=== PATIENT | male | born 1955 | race American Indian/Alaskan Native ===

== ENCOUNTER 2017-04-18 12:43 | Observation (INO) | payer OTHER ==
[2017-04-18 13:33] VITALS: BMI 35.5
--- NOTE | 2017-04-18 14:04 | ED PDOC ---
Arrival/HPI - General Chief Complaint: Weakness/Neurological Deficit Time Seen by Provider: 04/18/17 13:18 Historian: Patient - History of Present Illness Narrative History of Present Illness (Text): 04/18/17 13:51 A 61 year old male, whose past medical history includes diabetes and hypertension, presents to the emergency department complaining of chest pain and generalized weakness. Patient reports last night he developed a left sided chest pain that lasted for a few minutes. He described the pain has a non radiating pressure. Patient notes that generalized weakness developed around the same time and lasted for hours into late this morning. Currently he states he has a mild non productive cough that began two weeks ago but he denies any fever, chills, chest pain, shortness of breath, headache, weakness, or any other complaints at this time. Time/Duration: Other Symptom Onset: Sudden Symptom Course: Resolved Quality: Other Activities at Onset: Rest Context: Home Past Medical History - Provider Review Nursing Documentation Reviewed: Yes - Cardiac Hx Hypertension: Yes - Pulmonary Hx Respiratory Disorders: No - Neurological Hx Neurological Disorder: No - HEENT Hx HEENT Disorder: No - Renal Hx Renal Disorder: No - Endocrine/Metabolic Hx Diabetes Mellitus Type 2: Yes - Hematological/Oncological Hx Blood Disorders: No - Integumentary Hx Dermatological Disorder: No - Musculoskeletal/Rheumatological Hx Musculoskeletal Disorders: No - Gastrointestinal Hx Gastrointestinal Disorders: No - Genitourinary/Gynecological Hx Genitourinary Disorders: No - Psychiatric Hx Psychophysiologic Disorder: No Hx Substance Use: No - Anesthesia Hx Anesthesia Reactions: No Family/Social History - Physician Review Nursing Documentation Reviewed: Yes Family/Social History: Unknown Family HX Smoking Status: Never Smoked Hx Alcohol Use: Yes Frequency of alcohol use: Socially Hx Substance Use: No Allergies/Home Meds Allergies/Adverse Reactions: Allergies No Known Allergies Allergy (Verified 04/18/17 13:38) Review of Systems - Physician Review All systems were reviewed & negative as marked: Yes - Review of Systems Constitutional: absent: Fevers Respiratory: Cough. absent: Sputum Cardiovascular: absent: Chest Pain Gastrointestinal: absent: Abdominal Pain, Hematochezia Genitourinary Male: absent: Hematuria Musculoskeletal: absent: Back Pain, Neck Pain Skin: absent: Rash Neurological: Normal. absent: Headache, Dizziness Physical Exam Vital Signs Reviewed: Yes Vital Signs Temp Pulse Resp BP Pulse Ox 04/18/17 14:13 68 18 148/79 100 04/18/17 12:50 98.1 F 72 16 153/84 H 100 Temperature: Afebrile Blood Pressure: Hypertensive Pulse: Regular Respiratory Rate: Normal Appearance: Positive for: Well-Appearing, Non-Toxic, Comfortable Pain Distress: None Mental Status: Positive for: Alert and Oriented X 3 - Systems Exam Head: Present: Atraumatic, Normocephalic Pupils: Present: PERRL Conjunctiva: Present: Normal Mouth: Present: Moist Mucous Membranes Pharnyx: Present: Normal. No: ERYTHEMA, EXUDATE Neck: Present: Normal Range of Motion Respiratory/Chest: Present: Clear to Auscultation, Good Air Exchange. No: Respiratory Distress, Accessory Muscle Use Cardiovascular: Present: Regular Rate and Rhythm, Normal S1, S2. No: Murmurs Abdomen: Present: Normal Bowel Sounds. No: Tenderness, Distention, Peritoneal Signs Back: Present: Normal Inspection Upper Extremity: Present: Normal Inspection. No: Cyanosis, Edema Lower Extremity: Present: Normal Inspection. No: Edema Neurological: Present: GCS=15, CN II-XII Intact, Speech Normal Skin: Present: Warm, Dry, Normal Color. No: Rashes Psychiatric: Present: Alert, Oriented x 3, Normal Insight, Normal Concentration Medical Decision Making ED Course and Treatment: 04/18/17 13:51 Impression: A 61 year old male with chest pain and generalized weakness. Differential Diagnosis include but are not limited to: ACS vs bronchitis vs muscular vs GERD Plan: -- EKG -- Chest X-ray -- Labs -- Urinalysis -- Reassess and disposition Progress Notes: EKG: Ordered, reviewed, and independently interpreted the EKG. Rate : 69 BPM Rhythm : NSR Interpretation : first degree AV block, [place] of 226 but other intervals are normal , normal axis, no ST/ T changes. Comparison : No previous EKG for comparison. 04/18/17 15:21 Patient with noted history. EKG is unremarkable but patient with chest pain and generalized weakness with a history of Diabetes and Hypertension with no previous cardiac workup. Will need serial CE and placement on tele. Discussed with Dr. Leon, on-call physician, for observation on his service on tele. - Lab Interpretations Lab Results: 04/18/17 14:18 04/18/17 14:18 Lab Results 04/18/17 14:20: Urine Color Yellow, Urine Appearance Clear, Urine pH 6.0, Ur Specific Sherwood >= 1.030, Urine Protein Trace H, Urine Glucose (UA) Negative, Urine Ketones Negative, Urine Blood Trace-lysed H, Urine Nitrate Negative, Urine Bilirubin Negative, Urine Urobilinogen 0.2, Ur Leukocyte Esterase Negative , Urine RBC 5 - 10, Urine WBC 2 - 5, Ur Epithelial Cells 6 - 8 04/18/17 14:18: Sodium 138, Potassium 4.1, Chloride 106, Carbon Dioxide 22, Anion Gap 14, BUN 16, Creatinine 0.8, Est GFR ( Amer) > 60, Est GFR (Non- Af Amer) > 60, Random Glucose 189 H, Calcium 9.7, Magnesium 1.8, Total Bilirubin 0.8, AST 19, ALT 28, Alkaline Phosphatase 59, Lactate Dehydrogenase 335, Total Creatine Kinase 116, Troponin I < 0.01, NT-Pro-B Natriuret Pep 184, Total Protein 7.7, Albumin 4.2, Globulin 3.5, Albumin/Globulin Ratio 1.2 04/18/17 14:18: PT 10.6, INR 0.98, APTT 27.5 04/18/17 14:18: WBC 5.7, RBC 4.67, Hgb 13.6 L, Hct 40.1 L, MCV 85.9, MCH 29.1, MCHC 33.9, RDW 13.9, Plt Count 296, MPV 9.3, Gran % 62.6, Lymph % (Auto) 25.6, Dixie % (Auto) 8.1 H, Eos % (Auto) 3.5, Baso % (Auto) 0.2, Gran # 3.57, Lymph # 1.5, Dixie # 0.5, Eos # 0.2, Baso # 0.01 I have reviewed the lab results: Yes - RAD Interpretation Radiology Orders: 04/18/17 13:55 CHEST PORTABLE [RAD] Stat - Medication Orders Current Medication Orders: Discontinued Medications Aspirin (Aspirin Chewable) 324 mg PO STAT STA Stop: 04/18/17 13:56 Last Admin: 04/18/17 14:01 Dose: 324 mg Aspirin (Aspirin) Confirm Administered Dose 325 mg .ROUTE .STK-MED ONE Stop: 04/18/17 14:01 Metoprolol Tartrate (Lopressor) 25 mg PO STAT STA Stop: 04/18/17 15:15 - Scribe Statement The provider has reviewed the documentation as recorded by the Ronaibe Piter Renee Provider Trinidad Attestation: All medical record entries made by the Scribe were at my direction and personally dictated by me. I have reviewed the chart and agree that the record accurately reflects my personal performance of the history, physical exam, medical decision making, and the department course for this patient. I have also personally directed, reviewed, and agree with the discharge instructions and disposition. Disposition/Present on Arrival - Present on Arrival Any Indicators Present on Arrival: No History of DVT/PE: No History of Uncontrolled Diabetes: No Urinary Catheter: No History of Decub. Ulcer: No History Surgical Site Infection Following: None - Disposition Have Diagnosis and Disposition been Completed?: Yes Diagnosis: Chest pain Disposition: HOSPITALIZED Disposition Time: 15:10 Patient Plan: Observation, Telemetry Condition: FAIR Discharge Instructions (ExitCare): Chest Pain (ED)
[2017-04-18 14:19] LABS: ADD MANUAL DIFF? NO
[2017-04-18 14:21] LABS: BASO # 0.01 K/mm3 (0.0-2.0); BASO % 0.2 % (0.0-3.0); EOS # 0.2 (0.0-0.7); EOS % 3.5 % (1.5-5.0); GRAN # 3.57 (1.4-6.5); GRAN % 62.6 % (50.0-68.0); HEMATOCRIT 40.1 % (42.0-52.0); LYMPH # 1.5 (1.2-3.4); LYMPH % 25.6 % (22.0-35.0); MEAN CELL VOLUME 85.9 fL (80.0-105.0); MEAN CORPUSCULAR HEMOGLOBIN 29.1 pg (25.0-35.0); MEAN CORPUSCULAR HGB CONC 33.9 g/dl (31.0-37.0); MEAN PLATELET VOLUME 9.3 fl (7.0-11.0); MONO # 0.5 (0.1-0.6); MONO % 8.1 % (1.0-6.0); PLATELET COUNT 296 10^3/uL (120.0-450.0); RED CELL DISTRIBUTION WIDTH 13.9 % (11.5-14.5); WHITE BLOOD COUNT 5.7 10^3/ul (4.5-11.0)
[2017-04-18 14:29] LABS: URINE BILIRUBIN NEGATIVE (NEGATIVE); URINE BLOOD TRACE-LYSED (NEGATIVE); URINE GLUCOSE (UA) NEGATIVE (NEGATIVE); URINE KETONE NEGATIVE (NEGATIVE); URINE LEUKOCYTE ESTERASE NEGATIVE Leu/uL (NEGATIVE); URINE PROTEIN TRACE mg/dL (<30 mg/dL); URINE UROBILINOGEN 0.2 E.U./dL (<1 E.U./dL)
[2017-04-18 14:31] LABS: INR 0.98 (0.93-1.08); PARTIAL THROMBOPLASTIN TIME 27.5 Seconds (23.7-30.8)
[2017-04-18 14:33] LABS: ALB/GLOB RATIO 1.2 (1.1-1.8); ALKALINE PHOSPHATASE 59 U/L (38-133); ALT/SGPT 28 U/L (7-56); AST/SGOT 19 U/L (15-59); BILIRUBIN,TOTAL 0.8 mg/dL (0.2-1.3); BLOOD UREA NITROGEN 16 mg/dL (7-21); CALCIUM 9.7 mg/dL (8.4-10.5); CARBON DIOXIDE 22 mmol/L (21-33); CHLORIDE 106 mmol/L (98-107); GFR AFRICAN-AMERICAN > 60; GLUCOSE,RANDOM 189 mg/dL (70-110); MAGNESIUM 1.8 mg/dL (1.7-2.2); POTASSIUM 4.1 mmol/L (3.6-5.0); SODIUM 138 mmol/L (132-148); TOTAL PROTEIN 7.7 g/dL (5.8-8.3)
[2017-04-18 14:36] LABS: URINE APPEARANCE CLEAR (CLEAR); URINE COLOR YELLOW (YELLOW)
[2017-04-18 15:01] LABS: TROPONIN I < 0.01 ng/mL
--- NOTE | 2017-04-18 15:15 | RAD ---
HISTORY: chest pain COMPARISON: No prior. FINDINGS: LUNGS: No active pulmonary disease. PLEURA: No significant pleural effusion identified, no pneumothorax apparent. CARDIOVASCULAR: No radiographic findings to suggest acute or significant cardiovascular disease. OSSEOUS STRUCTURES: No significant abnormalities. VISUALIZED UPPER ABDOMEN: Normal. OTHER FINDINGS: None. IMPRESSION: No active disease. No preliminary interpretation rendered by the emergency department physician
[2017-04-18] MEDS ORDERED: Pneumococcal 23-Valent Vaccine IM ONE (21:58)
[2017-04-19 05:23] VITALS: O2SAT 97
[2017-04-19] MEDS: Insulin Reg-LOW-Coverage SC SCH ×2 (08:42→12:36)
--- NOTE | 2017-04-19 09:23 | HP ---
The patient is a 61-year-old male with history of hypertension, diabetes. Came into the hospital wit h left side chest pain. The patient has his , is in the hospital, critical care. He is very str essed. Yesterday, he felt the pain for a half hour, left side chest pain, did not radiate anything, felt weak. No dizziness, no nausea, no fever, no cough. PAST MEDICAL HISTORY: Diabetes, hypertension. ALLERGIES: None known. SOCIAL HISTORY: He never smoked. No drinking. Drinking socially only. FAMILY HISTORY: Noncontributory. REVIEW OF SYSTEMS: Negative all systems. PHYSICAL EXAMINATION: VITAL SIGNS: Temperature 98.3, heart rate 72, blood pressure 152/92, respirations 18, saturation 100 % on room air. HEAD AND NECK: Normal. No JVD, no thyromegaly. CHEST: Clear, good air entry. CARDIAC: First sound, second sound normal. ABDOMEN: Soft, nontender. EXTREMITIES: No edema. NEUROLOGIC: Normal. LABORATORY STUDIES: Shows white count .7, hemoglobin 13.6, hematocrit 40.1, platelets 296. Tayler omar: Sodium 138, potassium 4.1, chloride 106, bicarb 22, BUN 16, creatinine 0.8, blood sugar 189. Liver function test is normal. Troponin, first set is negative. The patient has a chest x-ray, which was reported no active pulmonary disease. EKG was reported by E R physician, no significant findings. IMPRESSION AND PLAN: A 61-year-old male, diabetes, hypertension. Will admit the patient to telemetr y. Cardiac enzymes x 3. Cardiology consult and follow up clinically. John Leon MD cc: [phone] TT: 04/19/2017 09:22:51 en
[2017-04-19] MEDS ORDERED: Enoxaparin 40 mg Syringe SC SCH (10:00)
--- NOTE | 2017-04-19 10:43 | CARD ---
APPROVED REPORT EKG Measurement Heart [id number] <Conclusion> Sinus rhythm with 1st degree AV block
[2017-04-19 12:42] LABS: CHOLESTEROL 166 mg/dL (130-200)
[2017-04-19 12:50] VITALS: BP 160/98; RESP 20; TEMP 97.1
[2017-04-19 14:44] VITALS: PULSE 79
--- NOTE | 2017-04-20 08:07 | CON ---
DATE: 04/19/2017 REASON FOR CONSULTATION: Chest pain, cardiac evaluation. 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 Has a history of diabetes and hypertension, who came in with sharp chest pain . Denies any chest pain on exerti on, . ALLERGIES: No known drug allergy. SOCIAL HISTORY: Never smoked. No history of drinking. FAMILY HISTORY: Noncontributory. REVIEW OF SYSTEMS: A 14 point review of systems is as per HPI. CURRENT MEDICATIONS: The patient at home was taking metformin 1 gram twice a day. PHYSICAL EXAMINATION: VITAL SIGNS: Temperature afebrile, heart rate 78, blood pressure 139/89. HEENT: PERRLA. Extraocular muscles intact. NECK: Supple. No carotid bruits. No thyromegaly. CHEST: Clear to auscultation. HEART: S1, S2 regular. ABDOMEN: Soft. EXTREMITIES: Clubbing and cyanosis negative. LABORATORY DATA: Blood workup as follows: WBC , hemoglobin , hematocrit 40.1, platelet co unt 296. Chemistry shows sodium 130, potassium , chloride 106, carbon dioxide 22, anion gap of 14, BUN 16, creatinine 0.8. Troponin 0.01 x 2, negative. Triglyceride 102, LDL 55, cholesterol 166, HDL 31. TSH 1.96. EKG shows normal sinus rate of , first degree AV block. IMPRESSION: No evidence of acute coronary syndrome, hypertension, diabetes, multiple risk factors fo r coronary artery disease. Suggest echo and a stress test. Discussed with the patient. The patient was willing to undergo a stress test. Okay to discharge and will discuss with Dr. Leon. so far, no evidence of acute coronary syndrome. Will discontinue telemetry. Thank you, Dr. Leon, for providing me the opportunity in taking care of the patient. Will follow w ith you. Maryam Walls MD cc: [id number] TT: 04/19/2017 20:20:07 Confirmation # [id number] Dictation # [id number]
== END 2017-04-19 16:35 | disposition home or self-care (01) ==
LOC: ED 12:43 → ERH 15:13 → 2RNO 16:51
PROVIDERS: ADMIT Internal Medicine; ATTEND Internal Medicine
DX: R07.9 Chest pain, unspecified (principal); E11.9 Type 2 diabetes mellitus without complications; I10 Essential (primary) hypertension; R53.1 Weakness; I44.0 Atrioventricular block, first degree; R40.2412 Glasgow coma scale score 13-15, at arrival to emergency department
CPT/HCPCS: 36415; 71010; 80053; 80061; 81001; 82550; 82948; 83615; 83735; 83880; 84443; 84484; 85025; 85610; 85730; 93005; 99285; G0378; J1650